=== PATIENT | male | born 1960 | race Two or more races ===

== ENCOUNTER 2019-04-17 22:36 | Emergency (ER) | payer BC, OTHER ==
[~2019-04-17] VITALS: Ht 165.1 cm; Wt 80.3 kg
[~2019-04-17 22:36] MED LIST: ATOR10TA52 PO; CARV3.1240 PO; FURO40TA4 PO; POTA10TA51 PO
[2019-04-17 23:03] LABS: Basophils # (auto) 0 uL; Basophils % (auto) 0.7 % (0.0-2.0); Eosinophils # (auto) 0.1 uL; Eosinophils % (auto) 1.9 % (0.0-7.0); Hematocrit 40.9 % (41.0-53.0); Hemoglobin 13.8 g/dL (13.5-17.5); Lymphocytes # (auto) 1.2 uL; Lymphocytes % (auto) 19.4 % (10.0-50.0); Mean Corpuscular Hemoglobin 29.1 pg (28.0-32.0); Mean Corpuscular Hgb Conc. 33.8 g/dL (32.0-36.0); Mean Corpuscular Volume 86.2 fL (80.0-100.0); Monocytes # (auto) 0.5 uL; Monocytes % (auto) 8.6 % (0.0-12.0); Neutrophils # (auto) 4.4 uL; Neutrophils % (auto) 69.4 % (37.0-80.0); Platelet Count (auto) 92 10^3/uL (140-450); Red Blood Cells 4.75 10^6/uL (4.5-5.90); Red Cell Distribution Width 13.5 % (11.8-14.3); White Blood Cell 6.3 10^3/uL (4.4-10.8)
[2019-04-17 23:24] LABS: Albumin 3.7 g/dL (3.4-5.0); Calcium 8.1 mg/dL (8.5-10.1); Potassium 4.3 mmol/L (3.5-5.1)
[2019-04-17 23:26] LABS: BUN/Creatinine Ratio 14.3
[2019-04-17 23:35] LABS: Bilirubin, Total 0.4 mg/dL (0.2-1.0); Total Protein 6.8 g/dL (6.4-8.2)
[2019-04-17 23:52] LABS: INR 0.95 (0.9-1.15); Partial Thromboplastin Time 26.6 sec (23.64-32.05); Prothrombin Time 10.3 sec (9.06-12.60)
[2019-04-18 00:56] VITALS: BP 124/70
== END 2019-04-18 00:59 | disposition left against medical advice (07) ==
LOC: ER 22:44
DX: R07.9 Chest pain, unspecified (principal); R06.02 Shortness of breath; Z53.21 Procedure and treatment not carried out due to patient leaving prior to being seen by health care provider
CPT/HCPCS: 36415; 71045; 80053; 83880; 84484; 85025; 85610; 85730; 93005